=== PATIENT | male | born 1930 | race Caucasian/White ===

== ENCOUNTER 2021-11-10 18:44 | Emergency (ER) | payer MEDICARE ==
[~2021-11-10] VITALS: Ht 170.2 cm; Wt 87.5 kg
== END 2021-11-10 20:00 | disposition home or self-care (01) ==
LOC: ER 18:44
DX: S09.90XA Unspecified injury of head, initial encounter (principal); S01.01XA Laceration without foreign body of scalp, initial encounter; W01.190A Fall on same level from slipping, tripping and stumbling with subsequent striking against furniture, initial encounter
CPT/HCPCS: 12002; 70450; 99283-25